=== PATIENT | male | born 1995 | race Caucasian/White ===

== ENCOUNTER 2017-05-02 00:39 | Emergency (ER) | payer SELFPAY ==
[2017-05-02 00:39] VITALS: BMI 41.6
[2017-05-02 00:52] VITALS: TEMP 98.6
--- NOTE | 2017-05-02 00:59 | ED PDOC ---
Arrival/HPI - General Chief Complaint: ENT Problem Time Seen by Provider: 05/02/17 00:53 - History of Present Illness Narrative History of Present Illness (Text): 05/02/17 00:59 Srinivasan Leonardo is a 22 year old male who presents to the ED complaining of right ear pain since yesterday. Patient notes he recently went swimming and water entered his ear. Patient states he used [id number] ear drops but denies any significant relief. Patient denies any fever, chills, shortness of breath, neck pain, headache, dizziness, or any other complaints. Past Medical History - Provider Review Nursing Documentation Reviewed: Yes - Past History Past History: No Previous - Infectious Disease Hx of Infectious Diseases: None - Tetanus Immunization Tetanus Immunization: Up to Date - Past Medical History Past Medical History: No Previous - Pulmonary Hx Asthma: Yes - Neurological Hx Neurological Disorder: No - HEENT Hx HEENT Disorder: No - Renal Hx Renal Disorder: No - Endocrine/Metabolic Hx Endocrine Disorders: No - Hematological/Oncological Hx Blood Disorders: No - Integumentary Hx Dermatological Disorder: No - Musculoskeletal/Rheumatological Hx Musculoskeletal Disorders: No - Gastrointestinal Hx Gastrointestinal Disorders: No - Genitourinary/Gynecological Hx Genitourinary Disorders: No - Psychiatric Hx Psychophysiologic Disorder: No Hx Depression: No Hx Emotional Abuse: No Hx Physical Abuse: No Hx Substance Use: No - Surgical History Hx Tonsillectomy: Yes (adenoidectomy) Other/Comment: wisdom teeth extraction - Anesthesia Hx Anesthesia: Yes Hx Anesthesia Reactions: No Hx Malignant Hyperthermia: No - Suicidal Assessment Feels Threatened In Home Enviroment: No Family/Social History - Physician Review Nursing Documentation Reviewed: Yes Family/Social History: Unknown Family HX Smoking Status: Never Smoked Hx Alcohol Use: No Hx Substance Use: No Hx Substance Use Treatment: No Allergies/Home Meds Allergies/Adverse Reactions: Allergies No Known Allergies Allergy (Verified 07/08/16 19:14) Home Medications: Home Meds Medication Instructions Recorded Confirmed Atorvastatin [Lipitor] 10 mg PO DAILY 10/08/15 07/08/16 Cholecalciferol (Vitamin D3) 1 tab PO TH 10/08/15 07/08/16 [Vitamin D] Review of Systems - Physician Review All systems were reviewed & negative as marked: Yes - Review of Systems Constitutional: Normal. absent: Fevers Eyes: Normal ENT: Other (+right ear pain) Respiratory: Normal. absent: SOB, Cough Cardiovascular: Normal. absent: Chest Pain Gastrointestinal: Normal. absent: Nausea, Vomiting Musculoskeletal: Normal. absent: Back Pain, Neck Pain Neurological: Normal. absent: Headache, Dizziness Physical Exam Vital Signs Reviewed: Yes Vital Signs Temp Pulse Resp BP Pulse Ox 05/02/17 00:49 98.6 F 78 18 147/87 100 Temperature: Afebrile Blood Pressure: Normal Pulse: Regular Respiratory Rate: Normal Appearance: Positive for: Well-Appearing, Non-Toxic, Comfortable Pain Distress: None Mental Status: Positive for: Alert and Oriented X 3 - Systems Exam Head: Present: Atraumatic, Normocephalic Pupils: Present: PERRL Extroacular Muscles: Present: EOMI Conjunctiva: Present: Normal Ears: Present: Erythema (Erythema to right external ear canal and right TM), Other (Discomfort with palpation of right ear auricle) Mouth: Present: Moist Mucous Membranes Pharnyx: Present: Normal. No: ERYTHEMA, EXUDATE, TONSILS ENLARGED, Peritonsilar Swelling, Uvular Deviation, Muffled/Hoarse Voice, Strider, Soft Palate/Uvular Edema Nose (External): Present: Atraumatic Nose (Internal): Present: Normal Inspection Neck: Present: Normal Range of Motion Respiratory/Chest: Present: Clear to Auscultation, Good Air Exchange. No: Respiratory Distress, Accessory Muscle Use Cardiovascular: Present: Regular Rate and Rhythm, Normal S1, S2. No: Murmurs Abdomen: Present: Normal Bowel Sounds. No: Tenderness, Distention, Peritoneal Signs Neurological: Present: GCS=15, CN II-XII Intact, Speech Normal Skin: Present: Warm, Dry, Normal Color. No: Rashes Psychiatric: Present: Alert, Oriented x 3, Normal Insight, Normal Concentration Medical Decision Making ED Course and Treatment: 05/02/17 00:59 Impression: 22 year old male c/o right ear pain since yesterday. Differential Diagnosis included but are not limited to: otitis media vs. otitis externa Plan: -- Zithromax -- Ciprodex - Reassess and disposition Progress Notes: Patient is well-appearing, in no acute distress. I have discussed the results and plan with the patient, who expresses understanding. Patient given the opportunity to ask question, all questions were answered and there is agreement with the plan to discharge the patient home. Patient is stable for discharge. Patient was instructed to follow up with physician/clinic in 1-2 days or return if symptoms persist/worsen or new concerning symptoms arise. - Medication Orders Current Medication Orders: Discontinued Medications Azithromycin (Zithromax) 500 mg PO ONCE STA PRN Reason: Protocol Stop: 05/02/17 01:05 Last Admin: 05/02/17 01:20 Dose: 500 mg Ciprofloxacin/Dexamethasone (Ciprodex Otic) 4 drop AD ONCE ONE PRN Reason: Protocol Stop: 05/02/17 01:02 - Scribe Statement The provider has reviewed the documentation as recorded by the Sanchez Harp Provider Scribe Attestation: All medical record entries made by the Scribe were at my direction and personally dictated by me. I have reviewed the chart and agree that the record accurately reflects my personal performance of the history, physical exam, medical decision making, and the department course for this patient. I have also personally directed, reviewed, and agree with the discharge instructions and disposition. Disposition/Present on Arrival - Present on Arrival Any Indicators Present on Arrival: No History of DVT/PE: No History of Uncontrolled Diabetes: No Urinary Catheter: No History of Decub. Ulcer: No History Surgical Site Infection Following: None - Disposition Have Diagnosis and Disposition been Completed?: Yes Diagnosis: Otitis media, Otitis externa Disposition: HOME/ ROUTINE Disposition Time: 01:06 Patient Plan: Discharge Condition: GOOD Discharge Instructions (ExitCare): Otitis Externa (ED), Otitis Media (ED) Additional Instructions: Medication as prescribed/follow up with your doctor this week Prescriptions: Ciprofloxacin/Dexamethasone [Ciprodex Otic] 4 drop AD BID #1 bottle Azithromycin [Zithromax] 250 mg PO DAILY #4 tab
[2017-05-02] MEDS ORDERED: Ciprofloxacin/Dexamethasone OTIC SUSP AD ONE (01:01)
[2017-05-02 02:39] VITALS: BP 139/65; PULSE 75; RESP 14; O2SAT 98
== END 2017-05-02 02:38 | disposition home or self-care (01) ==
LOC: ED 00:39
DX: H66.90 Otitis media, unspecified, unspecified ear (principal); H60.90 Unspecified otitis externa, unspecified ear

== ENCOUNTER 2017-09-16 11:40 | Emergency (ER) | payer BC ==
[2017-09-16 11:40] VITALS: BMI 41.6
--- NOTE | 2017-09-16 11:46 | ED PDOC ---
Arrival/HPI - General Time Seen by Provider: 09/16/17 11:45 Historian: Patient - History of Present Illness Narrative History of Present Illness (Text): 09/16/17 11:45 22 y/o male, pmh including hypovitaminosis, nkda, c/o rt. chest painful lump x 3 days with no fall or trauma. Pt. stated that he has a painless cyst on the rt. anterior chest for over 6 months, noticed to have pain for the past 3 days , no fever or chills, no headache or night sweat, aggravated by touching, no nipple discharge, no axillary lymph node swelling or pain, no other medical or psychological complaints. Past Medical History - Provider Review Nursing Documentation Reviewed: Yes - Past History Past History: No Previous - Infectious Disease Hx of Infectious Diseases: None - Tetanus Immunization Tetanus Immunization: Up to Date - Past Medical History Past Medical History: No Previous - Pulmonary Hx Asthma: Yes - Neurological Hx Neurological Disorder: No - HEENT Hx HEENT Disorder: No - Renal Hx Renal Disorder: No - Endocrine/Metabolic Hx Endocrine Disorders: No - Hematological/Oncological Hx Blood Disorders: No - Integumentary Hx Dermatological Disorder: No - Musculoskeletal/Rheumatological Hx Musculoskeletal Disorders: No - Gastrointestinal Hx Gastrointestinal Disorders: No - Genitourinary/Gynecological Hx Genitourinary Disorders: No - Psychiatric Hx Psychophysiologic Disorder: No Hx Depression: No Hx Emotional Abuse: No Hx Physical Abuse: No Hx Substance Use: No - Surgical History Hx Tonsillectomy: Yes (adenoidectomy) Other/Comment: wisdom teeth extraction - Anesthesia Hx Anesthesia: Yes Hx Anesthesia Reactions: No Hx Malignant Hyperthermia: No - Suicidal Assessment Feels Threatened In Home Enviroment: No Family/Social History - Physician Review Nursing Documentation Reviewed: Yes Family/Social History: Unknown Family HX Smoking Status: Never Smoked Hx Alcohol Use: No Hx Substance Use: No Hx Substance Use Treatment: No Allergies/Home Meds Allergies/Adverse Reactions: Allergies No Known Allergies Allergy (Verified 09/16/17 11:48) Review of Systems - Review of Systems Constitutional: absent: Fatigue, Fevers Eyes: absent: Vision Changes ENT: absent: Hearing Changes Respiratory: absent: SOB, Cough Cardiovascular: absent: Chest Pain Gastrointestinal: absent: Abdominal Pain, Nausea, Vomiting Skin: Rash, Skin Lesions, Abscess. absent: Pruritis, Laceration, Ulcer, Cellulitis Neurological: absent: Headache, Dizziness, Speech Changes, Facial Droop Hemo/Lymphatic: absent: Adenopathy Physical Exam Vital Signs Reviewed: Yes Vital Signs Temp Pulse Resp BP Pulse Ox 09/16/17 12:07 98.9 F 92 H 18 150/79 99 09/16/17 11:49 98.9 F 92 H 16 150/79 97 Temperature: Afebrile Blood Pressure: Normal Pulse: Regular Respiratory Rate: Normal Appearance: Positive for: Well-Appearing, Non-Toxic, Comfortable Pain Distress: Moderate Mental Status: Positive for: Alert and Oriented X 3 - Systems Exam Head: Present: Atraumatic, Normocephalic Pupils: Present: PERRL Extroacular Muscles: Present: EOMI Conjunctiva: Present: Normal Mouth: Present: Moist Mucous Membranes Neck: Present: Normal Range of Motion Respiratory/Chest: Present: Clear to Auscultation, Good Air Exchange. No: Respiratory Distress, Accessory Muscle Use Cardiovascular: Present: Regular Rate and Rhythm, Normal S1, S2. No: Murmurs Abdomen: Present: Normal Bowel Sounds. No: Tenderness, Distention, Peritoneal Signs Back: Present: Normal Inspection Upper Extremity: Present: Normal Inspection. No: Cyanosis, Edema Lower Extremity: Present: Normal Inspection. No: Edema Neurological: Present: GCS=15, CN II-XII Intact, Speech Normal, Motor Func Grossly Intact, Gait Normal, Memory Normal Skin: Present: Warm, Dry, Rashes (Rt. pectoral major chest region visible and palpalble approx. [id number] elevated fluctuant lesion noted with no regional lymphenpathy, no streaking or ulcers. ), Normal Color Psychiatric: Present: Alert, Oriented x 3, Normal Insight, Normal Concentration Medical Decision Making ED Course and Treatment: 09/16/17 12:17 -keflex/bactrim/motrin -bedside sonogram performed by sc show 1cm beneath the skin, there is approx. [id number] of fluctuant abscess. -sensation intact, motor 5/5, wound irrigate with normal saline 500cc, clean with betadine, 1% lidocaine with epi injected 1cc for local anesthetic, #11 blade made 1cm superficial incision, approx. 5cc of purulant abscess drained, iodofoam packing, gauze dressing, sensation intact, motor 5/5, 09/16/17 13:22 -Discharge home with keflex, bactrim ds, motrin, keep the dressing dry and clean , wound needs to be checked and dressing/packing changed on day 2, return to the ER on day 2, follow up with your own pmd and general surgeon within 4 days, return to the ER for any new or worsening signs or symptoms. 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 Disposition/Present on Arrival - Present on Arrival Any Indicators Present on Arrival: No History of DVT/PE: No History of Uncontrolled Diabetes: No Urinary Catheter: No History of Decub. Ulcer: No History Surgical Site Infection Following: None - Disposition Have Diagnosis and Disposition been Completed?: Yes Diagnosis: Skin abscess Disposition: HOME/ ROUTINE Disposition Time: 12:20 Patient Plan: Discharge Patient Problems: Current Active Problems Problem Status Onset Skin abscess Acute Condition: IMPROVED Additional Instructions: -Discharge home with keflex, bactrim ds, motrin, keep the dressing dry and clean , wound needs to be checked and dressing/packing changed on day 2, return to the ER on day 2, follow up with your own pmd and general surgeon within 4 days, return to the ER for any new or worsening signs or symptoms. Prescriptions: Cephalexin [cephalexin] 500 mg PO QID #40 cap Ibuprofen [Motrin Tab] 600 mg PO QID PRN #35 tab PRN Reason: Other Sulfamethoxazole/Trimethoprim [Bactrim DS 800 mg-160 mg] 1 tab PO BID #20 tab Referrals: Bertin Perez MD [Medical Doctor] - Follow up with primary Forms: WORK NOTE
[2017-09-16 11:52] VITALS: TEMP 98.9
[2017-09-16] MEDS ORDERED: Tmp-Smz 800 mg-160 mg DS Tab PO STA (12:04)
[2017-09-16] MEDS ORDERED: Lidocaine 1%/Epinephrine 1:100000 30 ml vial IJ STA (12:04)
[2017-09-16 12:08] VITALS: RESP 18
[2017-09-16 14:10] VITALS: BP 140/82; PULSE 84; O2SAT 100
== END 2017-09-16 14:10 | disposition home or self-care (01) ==
LOC: ED 11:40
DX: L02.213 Cutaneous abscess of chest wall (principal)

== ENCOUNTER 2017-09-18 11:14 | Emergency (ER) | payer BC ==
[2017-09-18 11:15] VITALS: BMI 41.6
[2017-09-18 12:04] VITALS: BP 128/76; PULSE 84; RESP 18; TEMP 98.2; O2SAT 98
--- NOTE | 2017-09-18 12:13 | ED PDOC ---
Arrival/HPI - General Chief Complaint: Medical Clearance Time Seen by Provider: 09/18/17 11:51 - History of Present Illness Narrative History of Present Illness (Text): 09/18/17 12:13 22 y.o. male who was seen here two days ago for R chest wall abscess - I&D was done, and the patient was d/c on keflex and bactrim, which he says he has been taking and feels much better with resolution of pain at the abscess site. No fever or further drainage. Past Medical History - Past History Past History: No Previous - Infectious Disease Hx of Infectious Diseases: None - Tetanus Immunization Tetanus Immunization: Up to Date - Past Medical History Past Medical History: No Previous - Cardiac Hx Cardiac Disorders: Yes - Pulmonary Hx Asthma: Yes - Neurological Hx Neurological Disorder: No - HEENT Hx HEENT Disorder: No - Renal Hx Renal Disorder: No - Endocrine/Metabolic Hx Endocrine Disorders: No - Hematological/Oncological Hx Blood Disorders: No - Integumentary Hx Dermatological Disorder: No - Musculoskeletal/Rheumatological Hx Musculoskeletal Disorders: No - Gastrointestinal Hx Gastrointestinal Disorders: No - Genitourinary/Gynecological Hx Genitourinary Disorders: No - Psychiatric Hx Psychophysiologic Disorder: No Hx Depression: No Hx Emotional Abuse: No Hx Physical Abuse: No Hx Substance Use: No - Surgical History Hx Tonsillectomy: Yes (adenoidectomy) Other/Comment: wisdom teeth extraction - Anesthesia Hx Anesthesia: Yes Hx Anesthesia Reactions: No Hx Malignant Hyperthermia: No - Suicidal Assessment Feels Threatened In Home Enviroment: No Family/Social History - Physician Review Nursing Documentation Reviewed: Yes Family/Social History: Unknown Family HX Smoking Status: Never Smoked Hx Alcohol Use: No Hx Substance Use: No Hx Substance Use Treatment: No Allergies/Home Meds Allergies/Adverse Reactions: Allergies No Known Allergies Allergy (Verified 09/16/17 11:48) Review of Systems - Review of Systems Constitutional: absent: Fevers Skin: Abscess Physical Exam Vital Signs Temp Pulse Resp BP Pulse Ox 09/18/17 12:04 98.2 F 84 18 128/76 98 Temperature: Afebrile Blood Pressure: Normal Pulse: Regular Respiratory Rate: Normal Appearance: Positive for: Well-Appearing, Non-Toxic, Comfortable Pain Distress: None Mental Status: Positive for: Alert and Oriented X 3 - Systems Exam Head: Present: Atraumatic, Normocephalic Pharnyx: Present: Normal. No: ERYTHEMA, EXUDATE Skin: Present: Warm, Dry, Normal Color, Abscess (R chest wall abscess s/p I&D - no warmth, erythema, or swelling; packing removed with no more pus drainage.). No: Rashes Medical Decision Making ED Course and Treatment: 09/18/17 12:17 Patient s/p I&D of abscess - no more drainage, site with no cellulitis and patient well-appearing with no fever; will d/c and have him continue abx and warm compresses and follow up in the medical clinic. Disposition/Present on Arrival - Present on Arrival Any Indicators Present on Arrival: No History of DVT/PE: No History of Uncontrolled Diabetes: No Urinary Catheter: No History of Decub. Ulcer: No History Surgical Site Infection Following: None - Disposition Have Diagnosis and Disposition been Completed?: Yes Diagnosis: Encounter for abscess packing removal Disposition: HOME/ ROUTINE Disposition Time: 12:10 Patient Plan: Discharge Condition: GOOD Additional Instructions: Apply warm compresses to the abscess site three times daily. Make sure you complete the entire antibiotic course as prescribed. Follow up with the medical clinic. Return to the emergency department if any new concerning symptoms. Referrals: [facility] at [facility] [place]] - Follow up with primary
== END 2017-09-18 12:20 | disposition home or self-care (01) ==
LOC: ED 11:14
DX: Z48.00 Encounter for change or removal of nonsurgical wound dressing (principal)

== ENCOUNTER 2018-01-11 20:12 | Emergency (ER) | payer BC ==
[2018-01-11 20:13] VITALS: BMI 41.6
--- NOTE | 2018-01-11 20:15 | ED PDOC ---
Arrival/HPI - General Time Seen by Provider: 01/11/18 20:14 Historian: Patient - History of Present Illness Narrative History of Present Illness (Text): 01/11/18 20:15 22 y/o male, pmh including skin abscess, nkda, c/o painful lump on the rt. lower abdomen x 2 days. Pt. stated that he noticed a pimple yesterday, more panful and swelling today, no fever or chills, eating and drinking well, no night sweat, no rash, no dizziness, no change in vision, no other medical or psychological complaints. Past Medical History - Provider Review Nursing Documentation Reviewed: Yes - Past History Past History: No Previous - Infectious Disease Hx of Infectious Diseases: None - Tetanus Immunization Tetanus Immunization: Up to Date - Past Medical History Past Medical History: No Previous - Cardiac Hx Cardiac Disorders: Yes - Pulmonary Hx Asthma: Yes - Neurological Hx Neurological Disorder: No - HEENT Hx HEENT Disorder: No - Renal Hx Renal Disorder: No - Endocrine/Metabolic Hx Endocrine Disorders: No - Hematological/Oncological Hx Blood Disorders: No - Integumentary Hx Dermatological Disorder: No - Musculoskeletal/Rheumatological Hx Musculoskeletal Disorders: No - Gastrointestinal Hx Gastrointestinal Disorders: No - Genitourinary/Gynecological Hx Genitourinary Disorders: No - Psychiatric Hx Psychophysiologic Disorder: No Hx Depression: No Hx Emotional Abuse: No Hx Physical Abuse: No Hx Substance Use: No - Surgical History Hx Tonsillectomy: Yes (adenoidectomy) Other/Comment: wisdom teeth extraction - Anesthesia Hx Anesthesia: Yes Hx Anesthesia Reactions: No Hx Malignant Hyperthermia: No - Suicidal Assessment Feels Threatened In Home Enviroment: No Family/Social History - Physician Review Nursing Documentation Reviewed: Yes Family/Social History: Unknown Family HX Smoking Status: Never Smoked Hx Alcohol Use: No Hx Substance Use: No Hx Substance Use Treatment: No Allergies/Home Meds Allergies/Adverse Reactions: Allergies No Known Allergies Allergy (Verified 01/11/18 20:15) Review of Systems - Review of Systems Constitutional: absent: Fatigue, Fevers Eyes: absent: Vision Changes ENT: absent: Hearing Changes Respiratory: absent: SOB, Cough Cardiovascular: absent: Chest Pain Gastrointestinal: absent: Abdominal Pain, Nausea, Vomiting Skin: Skin Lesions, Cellulitis. absent: Rash, Pruritis, Laceration, Abscess, Ulcer Neurological: absent: Headache, Dizziness Psychiatric: absent: Anxiety, Depression, Suicidal Ideation Physical Exam Vital Signs Reviewed: Yes Vital Signs Temp Pulse Resp BP Pulse Ox 01/11/18 20:17 99.2 F 98 H 17 141/79 95 Temperature: Afebrile Blood Pressure: Normal Pulse: Regular Respiratory Rate: Normal Appearance: Positive for: Well-Appearing, Non-Toxic, Comfortable Pain Distress: Moderate Mental Status: Positive for: Alert and Oriented X 3 - Systems Exam Head: Present: Atraumatic, Normocephalic Pupils: Present: PERRL Extroacular Muscles: Present: EOMI Conjunctiva: Present: Normal Mouth: Present: Moist Mucous Membranes Neck: Present: Normal Range of Motion Respiratory/Chest: Present: Clear to Auscultation, Good Air Exchange. No: Respiratory Distress, Accessory Muscle Use Cardiovascular: Present: Regular Rate and Rhythm, Normal S1, S2. No: Murmurs Abdomen: Present: Normal Bowel Sounds. No: Tenderness, Distention, Peritoneal Signs, Rebound, Guarding Back: Present: Normal Inspection Upper Extremity: Present: Normal Inspection. No: Cyanosis, Edema Lower Extremity: Present: Normal Inspection. No: Edema Neurological: Present: GCS=15, CN II-XII Intact, Speech Normal, Motor Func Grossly Intact, Gait Normal, Memory Normal Skin: Present: Warm, Dry, Rashes (Rt. lower abdomen visible approx. [id number] non- fluctuant lump noted with mild erythematous approx. 3cm diameter noted, no streaking or ulcers. ), Normal Color Psychiatric: Present: Alert, Oriented x 3, Normal Insight, Normal Concentration Medical Decision Making ED Course and Treatment: 01/11/18 21:07 -Bedside sonogram performed by me with no visible fluid fill abscess cavity, no indication of the aspiration indicated today, will cover with the keflex and bactrim ds and return to the ER in 2 days for re-evaluation to determine if I&D indicated at that time. -Keflex/bactrim/motrin ordered 01/11/18 21:26 -Discharge home with keflex, bacrim ds, motrin, keep the skin cool and dry, follow up with your own pmd and general surgeon within 2 days, return to the ER for any new or worsening signs or symptoms. 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 Disposition/Present on Arrival - Present on Arrival Any Indicators Present on Arrival: No History of DVT/PE: No History of Uncontrolled Diabetes: No Urinary Catheter: No History of Decub. Ulcer: No History Surgical Site Infection Following: None - Disposition Have Diagnosis and Disposition been Completed?: Yes Diagnosis: Cellulitis Disposition: HOME/ ROUTINE Disposition Time: 21:09 Patient Plan: Discharge Patient Problems: Current Active Problems Problem Status Onset Cellulitis Acute Condition: GOOD Discharge Instructions (ExitCare): Cellulitis (ED) Additional Instructions: -Discharge home with keflex, bacrim ds, motrin, keep the skin cool and dry, follow up with your own pmd and general surgeon within 2 days, return to the ER for any new or worsening signs or symptoms. Prescriptions: Cephalexin [cephalexin] 500 mg PO QID #40 cap Ibuprofen [Motrin Tab] 800 mg PO TID PRN #21 tab PRN Reason: Other Sulfamethoxazole/Trimethoprim [Bactrim Ds Tablet] 1 each PO BID #20 tablet Referrals: PCPJENNIFER [Primary Care Provider] - Follow up with primary Chidi Donis MD [Staff Provider] - Follow up with primary [facility] at [facility] [place] [Outside] - Follow up with primary Forms: WORK NOTE
[2018-01-11 20:19] VITALS: TEMP 99.2
[2018-01-11] MEDS ORDERED: Tmp-Smz 800 mg-160 mg DS Tab PO STA (21:04)
[2018-01-11 21:54] VITALS: BP 126/74; PULSE 86; RESP 18; O2SAT 99
== END 2018-01-11 21:55 | disposition home or self-care (01) ==
LOC: ED 20:12
DX: L03.311 Cellulitis of abdominal wall (principal)

== ENCOUNTER 2018-01-13 13:11 | Emergency (ER) | payer BC ==
[2018-01-13 13:12] VITALS: BMI 41.6
--- NOTE | 2018-01-13 13:23 | ED PDOC ---
Arrival/HPI - General Time Seen by Provider: 01/13/18 13:22 Historian: Patient - History of Present Illness Narrative History of Present Illness (Text): 01/13/18 13:23 22 y/o male, no significant pmh, nkda, here for the wound check up for his cellulitis, Pt. was seen by me about 2 days ago, told to come back today for wound evaluation as there was an early abscess about 2 days ago with majority cellulitis, no fever or chills, stated that the redness decrease significantly, no night sweats, no change in appetize, no other medical or psychological complaints. Past Medical History - Provider Review Nursing Documentation Reviewed: Yes - Past History Past History: No Previous - Infectious Disease Hx of Infectious Diseases: None - Tetanus Immunization Tetanus Immunization: Up to Date - Past Medical History Past Medical History: No Previous - Cardiac Hx Cardiac Disorders: Yes - Pulmonary Hx Asthma: Yes - Neurological Hx Neurological Disorder: No - HEENT Hx HEENT Disorder: No - Renal Hx Renal Disorder: No - Endocrine/Metabolic Hx Endocrine Disorders: No - Hematological/Oncological Hx Blood Disorders: No - Integumentary Hx Dermatological Disorder: No - Musculoskeletal/Rheumatological Hx Musculoskeletal Disorders: No - Gastrointestinal Hx Gastrointestinal Disorders: No - Genitourinary/Gynecological Hx Genitourinary Disorders: No - Psychiatric Hx Psychophysiologic Disorder: No Hx Depression: No Hx Emotional Abuse: No Hx Physical Abuse: No Hx Substance Use: No - Surgical History Hx Tonsillectomy: Yes (adenoidectomy) Other/Comment: wisdom teeth extraction - Anesthesia Hx Anesthesia: Yes Hx Anesthesia Reactions: No Hx Malignant Hyperthermia: No - Suicidal Assessment Feels Threatened In Home Enviroment: No Family/Social History - Physician Review Nursing Documentation Reviewed: Yes Family/Social History: Unknown Family HX Smoking Status: Never Smoked Hx Alcohol Use: No Hx Substance Use: No Hx Substance Use Treatment: No Allergies/Home Meds Allergies/Adverse Reactions: Allergies No Known Allergies Allergy (Verified 01/13/18 13:35) Review of Systems - Review of Systems Constitutional: absent: Fatigue, Fevers Eyes: absent: Vision Changes ENT: absent: Hearing Changes Respiratory: absent: SOB, Cough Cardiovascular: absent: Chest Pain Gastrointestinal: absent: Abdominal Pain, Nausea, Vomiting Skin: Rash, Skin Lesions, Abscess, Cellulitis. absent: Pruritis, Laceration, Ulcer Neurological: absent: Headache, Dizziness Psychiatric: absent: Anxiety, Depression Physical Exam Vital Signs Reviewed: Yes Vital Signs Temp Pulse Resp BP Pulse Ox 01/13/18 13:31 98.7 F 76 17 131/57 L 98 Temperature: Afebrile Blood Pressure: Normal Pulse: Regular Respiratory Rate: Normal Appearance: Positive for: Well-Appearing, Non-Toxic, Comfortable Pain Distress: Moderate Mental Status: Positive for: Alert and Oriented X 3 - Systems Exam Head: Present: Atraumatic, Normocephalic Pupils: Present: PERRL Extroacular Muscles: Present: EOMI Conjunctiva: Present: Normal Mouth: Present: Moist Mucous Membranes Neck: Present: Normal Range of Motion Respiratory/Chest: Present: Clear to Auscultation, Good Air Exchange. No: Respiratory Distress, Accessory Muscle Use Cardiovascular: Present: Regular Rate and Rhythm, Normal S1, S2. No: Murmurs Abdomen: Present: Normal Bowel Sounds. No: Tenderness, Distention, Peritoneal Signs Back: Present: Normal Inspection Upper Extremity: Present: Normal Inspection. No: Cyanosis, Edema Lower Extremity: Present: Normal Inspection. No: Edema Neurological: Present: GCS=15, CN II-XII Intact, Speech Normal, Motor Func Grossly Intact, Gait Normal, Memory Normal Skin: Present: Warm, Dry, Rashes (Rt. lower abdomen region visible approx. 4cm diameter celluitis with approx. 2.5cm diameter fluctuant abscess, no streaking , no ulcers. ), Normal Color Psychiatric: Present: Alert, Oriented x 3, Normal Insight, Normal Concentration Medical Decision Making ED Course and Treatment: 01/13/18 13:57 -keflex/bactrim ds/percocet -will I&D today 01/13/18 14:43 -Sensation intact, motor 5/5, wound irrigated with normal saline 500cc, clean with Betadine, sterile procedure as usual, 1% lidocaine with 1 mL with local infiltration, #11 blade made 1cm incision, approx. 4cc of abscess drained, swelling spontaneously resolved, clean with gauze and hemostasis obtained, 1/4" packing inserted, xerofoam and gauze dressing, hemostasis obtained, bacitracin apply, gauze dressing, sensation intact, motor 5/5, minimal blood loss, pt. tolerated the procedure well with no complication. Pain decreased and pt. feel much better. -Discharge home with continue keflex/bactrim ds and motrin at home, education on to keep the dressing and wound clean and dry for 48 hours, return to the ER for packing change and wound check on day 2, follow up with your own primary care doctors and specialist within 4 days, return to ER for any concerning/ worsening signs or symptoms - Medication Orders Current Medication Orders: Discontinued Medications Cephalexin Monohydrate (Keflex) 500 mg PO STAT STA PRN Reason: Protocol Stop: 01/13/18 13:53 Last Admin: 01/13/18 14:21 Dose: 500 mg Lidocaine HCl (Lidocaine 1% (20ml)) 1 ml IJ STAT STA Stop: 01/13/18 13:53 Last Admin: 01/13/18 14:23 Dose: 1 % Oxycodone/Acetaminophen (Percocet 5/325 Mg Tab) 1 tab PO STAT STA Stop: 01/13/18 13:53 Last Admin: 01/13/18 14:21 Dose: 1 tab MAR Pain Assessment Document 01/13/18 14:21 EWO (Rec: 01/13/18 14:23 EWO [id number]) Pain Reassessment Is this a pain reassessment? No Sleep Is patient sleeping during reassessment? No Presence of Pain Presence of Pain Yes Pain Scale Used Pain Scale Used Numeric Location Left, Right or Bilateral Right Upper or Lower Lower Pain Location Body Site Abdomen Description Description Constant Intensity of Pain at present 5 Pain Behavior Guarding Trimethoprim/Sulfamethoxazole (Bactrim Ds Tab) 1 tab PO STAT STA PRN Reason: Protocol Stop: 01/13/18 13:53 Last Admin: 01/13/18 14:21 Dose: 1 tab - PA / DIGITAL STRATEGY DIRECTOR / Resident Statement / has reviewed & agrees with the documentation as recorded. Disposition/Present on Arrival - Present on Arrival Any Indicators Present on Arrival: No History of DVT/PE: No History of Uncontrolled Diabetes: No Urinary Catheter: No History of Decub. Ulcer: No History Surgical Site Infection Following: None - Disposition Have Diagnosis and Disposition been Completed?: Yes Diagnosis: Abscess Disposition: HOME/ ROUTINE Disposition Time: 13:58 Patient Plan: Discharge Patient Problems: Current Active Problems Problem Status Onset Abscess Acute Condition: IMPROVED Additional Instructions: -Discharge home with continue keflex/bactrim ds and motrin at home, education on to keep the dressing and wound clean and dry for 48 hours, return to the ER for packing change and wound check on day 2, follow up with your own primary care doctors and specialist within 4 days, return to ER for any concerning/ worsening signs or symptoms Referrals: PCP,NO [Primary Care Provider] - Follow up with primary Chidi Donis MD [Staff Provider] - Follow up with primary Forms: WORK NOTE
[2018-01-13 13:35] VITALS: BP 131/57; PULSE 76; RESP 17; TEMP 98.7; O2SAT 98
[2018-01-13] MEDS ORDERED: Lidocaine 1% Inj (20ml) IJ STA (13:52)
[2018-01-13] MEDS ORDERED: Tmp-Smz 800 mg-160 mg DS Tab PO STA (13:52)
[2018-01-13] MEDS ORDERED: Oxycodone/Acetaminophen 5/325 mg Tab PO STA (13:52)
[2018-01-13] MEDS ORDERED: Lidocaine 1% Inj (20ml) ONE (13:57)
== END 2018-01-13 14:58 | disposition home or self-care (01) ==
LOC: ED 13:11
DX: L02.211 Cutaneous abscess of abdominal wall (principal)

== ENCOUNTER 2018-01-15 11:28 | Emergency (ER) | payer BC ==
[2018-01-15 11:40] VITALS: RESP 18; TEMP 98.8; BMI 41.3
--- NOTE | 2018-01-15 12:10 | ED PDOC ---
Arrival/HPI - General Chief Complaint: Wound Check Time Seen by Provider: 01/15/18 11:31 Historian: Patient - History of Present Illness Narrative History of Present Illness (Text): 01/15/18 12:07 22yo morbidly obese male present to ED for packing removal. He states that packing was placed her e 2days ago, after I &D of right abdominal/groin abscises. He is currently on antibiotics. Denies any other complaint. Past Medical History - Provider Review Nursing Documentation Reviewed: Yes - Past History Past History: No Previous - Infectious Disease Hx of Infectious Diseases: None - Tetanus Immunization Tetanus Immunization: Up to Date - Past Medical History Past Medical History: No Previous - Cardiac Hx Cardiac Disorders: Yes - Pulmonary Hx Asthma: Yes - Neurological Hx Neurological Disorder: No - HEENT Hx HEENT Disorder: No - Renal Hx Renal Disorder: No - Endocrine/Metabolic Hx Endocrine Disorders: No - Hematological/Oncological Hx Blood Disorders: No - Integumentary Hx Dermatological Disorder: No - Musculoskeletal/Rheumatological Hx Musculoskeletal Disorders: No - Gastrointestinal Hx Gastrointestinal Disorders: No - Genitourinary/Gynecological Hx Genitourinary Disorders: No - Psychiatric Hx Psychophysiologic Disorder: No Hx Depression: No Hx Emotional Abuse: No Hx Physical Abuse: No Hx Substance Use: No - Surgical History Hx Tonsillectomy: Yes (adenoidectomy) Other/Comment: wisdom teeth extraction - Anesthesia Hx Anesthesia: Yes Hx Anesthesia Reactions: No Hx Malignant Hyperthermia: No - Suicidal Assessment Feels Threatened In Home Enviroment: No Family/Social History - Physician Review Nursing Documentation Reviewed: Yes Family/Social History: Unknown Family HX Smoking Status: Never Smoked Hx Alcohol Use: No Hx Substance Use: No Hx Substance Use Treatment: No Allergies/Home Meds Allergies/Adverse Reactions: Allergies No Known Allergies Allergy (Verified 01/15/18 11:40) Review of Systems - Physician Review All systems were reviewed & negative as marked: Yes - Review of Systems Constitutional: Normal Eyes: Normal ENT: Normal Respiratory: Normal Cardiovascular: Normal Gastrointestinal: Normal Genitourinary Male: Normal Musculoskeletal: Normal Skin: Other (PAcking removal) Neurological: Normal Endocrine: Normal Hemo/Lymphatic: Normal Psychiatric: Normal Physical Exam Vital Signs Reviewed: Yes Vital Signs Temp Pulse Resp BP Pulse Ox 01/15/18 11:36 98.8 F 81 18 114/71 97 Temperature: Afebrile Blood Pressure: Normal Pulse: Regular Respiratory Rate: Normal Appearance: Positive for: Well-Appearing, Non-Toxic, Comfortable Pain Distress: None Mental Status: Positive for: Alert and Oriented X 3 - Systems Exam Head: Present: Atraumatic, Normocephalic Pupils: Present: PERRL Extroacular Muscles: Present: EOMI Conjunctiva: Present: Normal Mouth: Present: Moist Mucous Membranes Neck: Present: Normal Range of Motion Respiratory/Chest: Present: Clear to Auscultation, Good Air Exchange. No: Respiratory Distress, Accessory Muscle Use Cardiovascular: Present: Regular Rate and Rhythm, Normal S1, S2. No: Murmurs Abdomen: Present: Normal Bowel Sounds. No: Tenderness, Distention, Peritoneal Signs Back: Present: Normal Inspection Upper Extremity: Present: Normal Inspection. No: Cyanosis, Edema Lower Extremity: Present: Normal Inspection. No: Edema Neurological: Present: GCS=15, CN II-XII Intact, Speech Normal Skin: Present: Warm, Dry, Normal Color, Other (Dressing noted in place to right lower abdominal/groin area). No: Rashes Psychiatric: Present: Alert, Oriented x 3, Normal Insight, Normal Concentration Medical Decision Making ED Course and Treatment: 01/15/18 12:09 Packing removed. Wound dressed. Pt advised to continue applying warm compress to area. continue with with abx and f/u with your Doctor. Disposition/Present on Arrival - Present on Arrival Any Indicators Present on Arrival: No History of DVT/PE: No History of Uncontrolled Diabetes: No Urinary Catheter: No History of Decub. Ulcer: No History Surgical Site Infection Following: None - Disposition Have Diagnosis and Disposition been Completed?: Yes Diagnosis: Abscess packing removal Disposition: HOME/ ROUTINE Disposition Time: 12:10 Patient Plan: Discharge Condition: STABLE Discharge Instructions (ExitCare): Wound Care (DC) Additional Instructions: continue with your antibiotics and keep wound clean follow up with your doctor Return to Ed for any new symptoms Referrals: PCP,NO [Primary Care Provider] - Follow up with primary [facility] [place] [Outside] - Follow up with primary
[2018-01-15 12:28] VITALS: BP 112/69; PULSE 74; O2SAT 98
== END 2018-01-15 12:32 | disposition home or self-care (01) ==
LOC: ED 11:28
DX: Z48.01 Encounter for change or removal of surgical wound dressing (principal)

== ENCOUNTER 2018-04-28 04:54 | Emergency (ER) | payer BC ==
[2018-04-28 04:54] VITALS: BMI 41.3
[2018-04-28 05:07] VITALS: RESP 18; TEMP 98.2
--- NOTE | 2018-04-28 05:15 | ED PDOC ---
Arrival/HPI - General Historian: Patient - History of Present Illness Time/Duration: 24 hours Symptom Onset: Sudden Symptom Course: Unchanged Quality: Aching Severity Level: 5 - General Chief Complaint: ENT Problem Time Seen by Provider: 04/28/18 04:57 - History of Present Illness Narrative History of Present Illness (Text): 23 year old male with prior ear infections present with left ear pain which began 24 hours ago. Patient admits to swimming in a [place]. Patient denies any trauma. Patient denies hearing loss, fever, chills, or any other complaints. 04/28/18 05:13 (Dario Childs) Past Medical History - Provider Review Nursing Documentation Reviewed: Yes - Past History Past History: No Previous - Infectious Disease Hx of Infectious Diseases: None - Tetanus Immunization Tetanus Immunization: Up to Date - Past Medical History Past Medical History: No Previous - Cardiac Hx Cardiac Disorders: Yes - Pulmonary Hx Asthma: Yes - Neurological Hx Neurological Disorder: No - HEENT Hx HEENT Disorder: No - Renal Hx Renal Disorder: No - Endocrine/Metabolic Hx Endocrine Disorders: No - Hematological/Oncological Hx Blood Disorders: No - Integumentary Hx Dermatological Disorder: No - Musculoskeletal/Rheumatological Hx Musculoskeletal Disorders: No - Gastrointestinal Hx Gastrointestinal Disorders: No - Genitourinary/Gynecological Hx Genitourinary Disorders: No - Psychiatric Hx Psychophysiologic Disorder: No Hx Depression: No Hx Emotional Abuse: No Hx Physical Abuse: No Hx Substance Use: No - Surgical History Hx Tonsillectomy: Yes (adenoidectomy) Other/Comment: wisdom teeth extraction - Anesthesia Hx Anesthesia: Yes Hx Anesthesia Reactions: No Hx Malignant Hyperthermia: No - Suicidal Assessment Feels Threatened In Home Enviroment: No Family/Social History - Physician Review Nursing Documentation Reviewed: Yes Family/Social History: No Known Family HX Smoking Status: Never Smoked Hx Alcohol Use: No Hx Substance Use: No Hx Substance Use Treatment: No Allergies/Home Meds Allergies/Adverse Reactions: Allergies No Known Allergies Allergy (Verified 04/28/18 05:05) Review of Systems - Review of Systems Constitutional: Normal. absent: Fatigue, Fevers, Night Sweats Eyes: Normal ENT: Other (left ear pain). absent: Hearing Changes Respiratory: Normal. absent: Cough Cardiovascular: Normal Gastrointestinal: Normal Genitourinary Male: Normal Musculoskeletal: Normal Skin: Normal Neurological: Normal Endocrine: Normal Hemo/Lymphatic: Normal Psychiatric: Normal Physical Exam Temperature: Afebrile Blood Pressure: Normal Pulse: Regular Respiratory Rate: Normal Appearance: Positive for: Well-Appearing, Non-Toxic, Comfortable Pain Distress: Mild Mental Status: Positive for: Alert and Oriented X 3 - Systems Exam Head: Present: Atraumatic, Normocephalic Pupils: Present: PERRL Extroacular Muscles: Present: EOMI Conjunctiva: Present: Normal Ears: Present: Other (white discharge left ear). No: Erythema Mouth: Present: Moist Mucous Membranes Neck: Present: Normal Range of Motion Respiratory/Chest: Present: Clear to Auscultation, Good Air Exchange. No: Respiratory Distress Cardiovascular: Present: Regular Rate and Rhythm, Normal S1, S2 Abdomen: No: Tenderness, Distention Upper Extremity: Present: Normal Inspection. No: Edema Lower Extremity: Present: Normal Inspection. No: Edema Neurological: Present: GCS=15, CN II-XII Intact Skin: Present: Warm Psychiatric: Present: Alert, Oriented x 3 Vital Signs Temp Pulse Resp BP Pulse Ox 04/28/18 05:40 82 18 130/65 98 04/28/18 05:05 98.2 F 86 18 134/69 97 Medical Decision Making ED Course and Treatment: Plan -otoscope exam, amoxicillin, DC with Rx for ear drops and antibiotics 04/28/18 05:17 (Dario Childs) In agreement with resident note, which includes further HPI details. Patient was seen and evaluated with resident, came up with plan and treatment together. (Jeffery García) - Medication Orders Current Medication Orders: Discontinued Medications Amoxicillin (Amoxil 250 Mg Cap) 250 mg PO STAT STA PRN Reason: Protocol Stop: 04/28/18 05:19 Last Admin: 04/28/18 05:39 Dose: 250 mg Amoxicillin (Amoxil 500 Mg Cap) 500 mg PO STAT STA PRN Reason: Protocol Stop: 04/28/18 05:19 Last Admin: 04/28/18 05:39 Dose: 500 mg Disposition/Present on Arrival - Present on Arrival Any Indicators Present on Arrival: No History of DVT/PE: No History of Uncontrolled Diabetes: No Urinary Catheter: No History of Decub. Ulcer: No History Surgical Site Infection Following: None - Disposition Have Diagnosis and Disposition been Completed?: Yes Disposition Time: :21 - Disposition Diagnosis: Otitis externa Disposition: HOME/ ROUTINE Condition: GOOD Discharge Instructions (ExitCare): Outer Ear Infection (DC) Prescriptions: Amoxicillin 875 mg PO BID #10 tablet Ciprofloxacin/Dexamethasone [Ciprodex 0.3%-0.1% 7.5 Ml] 1 drop OT DAILY #1 bottle Forms: [employer] ([place]ian)
[2018-04-28 05:48] VITALS: BP 130/65; PULSE 82; O2SAT 98
== END 2018-04-28 05:40 | disposition home or self-care (01) ==
LOC: ED 04:54
DX: H60.92 Unspecified otitis externa, left ear (principal)